=== PATIENT | male | born 1960 | race Caucasian/White ===

== ENCOUNTER 2022-09-18 11:38 | Outpatient (REF) | payer OTHER, SELFPAY ==
[2022-09-18 13:19] LABS: Folate 9.3 ng/mL (> or = 4.0); Vitamin B12 468 pg/mL (200-900)
== END 2022-09-18 11:39 | disposition home or self-care (01) ==
LOC: HO.LAB 11:38
PROVIDERS: Visit Provider Psychiatry & Neurology Neurology
DX: G31.84 Mild cognitive impairment of uncertain or unknown etiology (principal)
CPT/HCPCS: 36415; 82607; 82746